=== PATIENT | male | born 1935 | race Caucasian/White ===

== ENCOUNTER 2017-03-23 11:11 | Emergency (ER) | payer MEDICARE, BC ==
[2017-03-23 11:22] VITALS: BP 118/65
[2017-03-23] MEDS ORDERED: Sodium Chloride 0.9% 1,000 ML IV ONE ×2 (11:38→13:35)
[2017-03-23] MEDS ORDERED: Sodium Chloride 0.9% 10 ML Syringe FLUSH PRN (11:39)
--- NOTE | 2017-03-23 11:42 | EDM.PDOC ---
ED HPI GENERAL MEDICAL PROBLEM - General Chief Complaint: Gastrointestinal Problem Stated Complaint: BLOOD IN STOOL Time Seen by Provider: 03/23/17 11:29 Source of Information: Reports: Patient History Limitations: Reports: No Limitations - History of Present Illness INITIAL COMMENTS - FREE TEXT/NARRATIVE: 81-year-old male presents for evaluation and treatment of a black, tarry stool. Reports one black stool prior to arrival in the ER. He has a history of GI bleeds and was hospitalized about one year ago. He's had an upper endoscopy and a colonoscopy about a year and a half ago. He is denying any current pain. No abdominal pain. No nausea, vomiting, hematemesis or syncope. He has been feeling slightly lightheaded this has been going on for the last few weeks but has been worse today. Patient also reports that he has been ill with an upper respiratory infection for several weeks. He states that he was sneezing last week has been coughing. He was seen at the [facility] today. He had a chest x-ray done. He eas prescribed doxycycline, prednisone and tessalon perles. He has not started these medications as he just picked him up from the pharmacy prior to coming to the ER. Patient has a history of a gastric ulcer. No current hematemesis. Patient has a history of diverticulitis and GI bleeds. Patient is currently on aspirin 81mg and Plavix for cardiac stent placed recently. Stent placed January 12, 2017 in [place]. - Related Data Allergies Allergy/AdvReac Type Severity Reaction Status Date / Time allantoin Allergy Edema Verified 03/23/17 11:22 bacitracin [From Polysporin] Allergy Swelling Verified 03/23/17 11:22 bacitracin zinc Allergy Swelling Verified 03/23/17 11:22 [From Neosporin ([id number])] Gramicidins Allergy Edema Verified 03/23/17 11:22 neomycin sulfate Allergy Swelling Verified 03/23/17 11:22 [From Neosporin ([id number])] polymyxin B Allergy Swelling Verified 03/23/17 11:22 [From Neosporin ([id number])] polymyxin B sulfate Allergy Swelling Verified 03/23/17 11:22 [From Polysporin] pramoxine Allergy Edema Verified 03/23/17 11:22 silicone Allergy Edema Verified 03/23/17 11:22 Home Meds: Home Meds Allopurinol [Zyloprim] 100 tab PO DAILY 07/08/15 [History] Aspirin [Adult Low Dose Aspirin EC] 81 tab PO DAILY 07/08/15 [History] Furosemide [Lasix] 40 mg PO DAILY 07/08/15 [History] Metoprolol Tartrate [Lopressor] 50 tab PO BID 07/08/15 [History] Nitroglycerin [Nitrostat] 0.4 mg SL ASDIRECTED PRN 07/08/15 [History] Spironolactone [Aldactone] 12.5 mg PO DAILY 07/08/15 [History] Tamsulosin [Flomax] 0.4 mg PO DAILY 07/08/15 [History] Isosorbide Mononitrate [Isosorbide Mononitrate ER] 60 mg PO BID 03/04/16 [ History] Losartan Potassium 50 mg PO DAILY 03/04/16 [History] Clopidogrel [Plavix] 75 mg PO DAILY 01/20/17 [History] Rosuvastatin [Crestor] 20 mg PO DAILY 03/23/17 [History] Past Medical History HEENT History: Reports: Cataract, Impaired Vision Other HEENT History: wears glasses. Cardiovascular History: Reports: Bypass, CAD, Cardiomyopathy, High Cholesterol, Hypertension Other Cardiovascular History: Chest Pain with exercise - EF 30% [see echo] Gastrointestinal History: Reports: Diverticulosis, GI Bleed Genitourinary History: Reports: Renal Calculus Other Genitourinary History: Currently treating new renal problems [CRI?] Musculoskeletal History: Reports: Gout - Infectious Disease History Infectious Disease History: Reports: Measles - Past Surgical History HEENT Surgical History: Reports: Cataract Surgery Cardiovascular Surgical History: Reports: AICD, Coronary Artery Bypass Male Surgical History: Reports: Other (See Below) Musculoskeletal Surgical History: Reports: None Dermatological Surgical History: Reports: None Social & Family History - Family History HEENT: Reports: Cataract Cardiac: Reports: Bypass, Heart Failure, Heart Valve Replacement, High Cholesterol, Hypertension Other Cardiac Family History: mom and brother, sisters "whole family had heart issues" OBGYN: Reports: Neurological: Reports: CVA Other Neurological Family History: mother Oncologic: Reports: Breast, Lung Other Oncologic Family History: sisters, father lung - Tobacco Use Smoking Status *Q: Never Smoker Years of Tobacco use: 30 Packs/Tins Daily: 1 Used Tobacco, but Quit: Yes Month Tobacco Last Used: 10/24/1969 Second Hand Smoke Exposure: No - Caffeine Use Caffeine Use: Reports: Coffee Other Caffeine Use: decaf 1 cup in the am. - Alcohol Use Days Per Week of Alcohol Use: 0 - Recreational Drug Use Recreational Drug Use: No Drug Use in Last 12 Months: No - Living Situation & Occupation Living situation: Reports: , with Spouse Occupation: Retired ED ROS GENERAL - Review of Systems Review Of Systems: See Below Constitutional: Reports: Decreased Appetite. Denies: Fever Respiratory: Reports: Cough Cardiovascular: Reports: Lightheadedness GI/Abdominal: Reports: Melena. Denies: Abdominal Pain, Diarrhea, Nausea, Vomiting Neurological: Denies: Syncope ED EXAM, GI/ABD - Physical Exam Exam: See Below Exam Limited By: No Limitations General Appearance: Alert, WD/WN, No Apparent Distress, Obese Respiratory/Chest: No Respiratory Distress, Lungs Clear, Normal Breath Sounds Cardiovascular: Normal Peripheral Pulses, Regular Rate, Rhythm, Systolic Murmur (grade 2 ) GI/Abdominal: Normal Bowel Sounds, Soft, Non-Tender Rectal (Males) Exam: Normal Exam, Normal Rectal Tone, Black Stool, Heme + Stool , Hemorrhoids (external hemorrhoid skin tag) Neurological: Alert, Oriented, Normal Cognition Psychiatric: Normal Affect, Normal Mood Skin Exam: Warm, Dry, Normal Color Course - Vital Signs Last Recorded V/S: Last Vital Signs Temp 37.1 C 03/23/17 11:18 Pulse 74 03/23/17 11:18 Resp 18 03/23/17 11:18 BP 118/65 03/23/17 11:18 Pulse Ox 98 03/23/17 11:18 Orthostatic Blood Pressure [ 120/62 Standing] Orthostatic Blood Pressure [ 120/56 Sitting] Orthostatic Blood Pressure [ 90/50 Supine] - Orders/Labs/Meds Orders: Active Orders 24 hr Category Date Time Status Cardiac Monitoring [RC] . DIRECTED Care 03/23/17 11:39 Active Hemoccult [Fecal Occult Blood Collection] [RC] Care 03/23/17 12:11 Active ASDIRECTED Orthostatic Vital Signs [RC] ASDIRECTED Care 03/23/17 11:39 Active Peripheral IV Care [RC] . DIRECTED Care 03/23/17 11:39 Active UA W/MICROSCOPIC [URIN] Stat Lab 03/23/17 11:39 Uncollected Sodium Chloride 0.9% [Normal Saline] 1,000 ml Med 03/23/17 11:38 Active IV ONETIME Sodium Chloride 0.9% [Saline Flush] Med 03/23/17 11:39 Active 10 ml FLUSH ASDIRECTED PRN Peripheral IV Insertion Adult [OM.PC] Routine Oth 03/23/17 11:37 Ordered Medication Orders Sodium Chloride (Normal Saline) 1,000 mls @ 100 mls/hr IV ONETIME ONE Stop: 03/23/17 21:37 Last Admin: 03/23/17 11:59 Dose: 100 mls/hr Sodium Chloride (Normal Saline) 1,000 mls @ 999 mls/hr IV ONETIME ONE Stop: 03/23/17 14:35 Pantoprazole Sodium 80 mg/ (Sodium Chloride) 100 mls @ 8 mls/hr IV NOW STA Stop: 03/24/17 02:19 Albumin Human (Flexbumin 25%) 25 gm in 100 mls @ 100 mls/hr IV ONETIME ONE Stop: 03/23/17 14:52 Sodium Chloride (Saline Flush) 10 ml FLUSH ASDIRECTED PRN PRN Reason: Keep Vein Open Last Admin: 03/23/17 12:00 Dose: 10 ml Labs: Laboratory Tests 03/23/17 03/23/17 03/23/17 Range/Units 11:50 11:50 11:50 WBC 11.59 H (4.23-9.07) K/mm3 RBC 3.13 L (4.63-6.08) M/mm3 Hgb 9.9 L (13.7-17.5) gm/L Hct 30.6 L (40.1-51.0) % MCV 97.8 H (79.0-92.2) fl MCH 31.6 (25.7-32.2) pg MCHC 32.4 (32.2-35.5) g/dl RDW Std Deviation 49.3 H (35.1-43.9) fL Plt Count 138 L (163-337) K/mm3 MPV 11.2 (9.4-12.3) fl Neutrophils % (Manual) 74 H (40-60) % Band Neutrophils % 1 (0-10) % Lymphocytes % (Manual) 22 (20-40) % Atypical Lymphs % 0 % Monocytes % (Manual) 2 (2-10) % Eosinophils % (Manual) 0 L (0.8-7.0) % Basophils % (Manual) 1 (0.2-1.2) Platelet Estimate Adequate Hypochromasia 1+ slight Anisocytosis 1+ slight RBC Morph Comment Not Reportable Sodium 142 (136-145) mEq/L Potassium 4.6 (3.5-5.1) mEq/L Chloride 109 H (98-107) mEq/L Carbon Dioxide 21 (21-32) mEq/L Anion Gap 16.6 H (5-15) BUN 103 H (7-18) mg/dL Creatinine 2.0 H (0.7-1.3) mg/dL Est Cr Clr Drug Dosing 31.79 mL/min Estimated GFR (MDRD) 32 (>60) mL/min BUN/Creatinine Ratio 51.5 H (14-18) Glucose 142 H (83-115) mg/dL Calcium 8.5 (8.5-10.1) mg/dL Total Bilirubin 0.5 (0.2-1.0) mg/dL AST 16 (15-37) U/L ALT 21 (16-63) U/L Alkaline Phosphatase 74 (46-116) U/L B-Natriuretic Peptide 181 H (0-100) pg/mL Total Protein 7.3 (6.4-8.2) g/dl Albumin 3.2 L (3.4-5.0) g/dl Globulin 4.1 gm/dL Albumin/Globulin Ratio 0.8 L (1-2) Meds: Medications Generic Name Dose Route Start Last Admin Trade Name Paul PRN Reason Stop Dose Admin Sodium Chloride 1,000 mls @ 100 mls/hr 03/23/17 11:38 03/23/17 11:59 Normal Saline IV 03/23/17 21:37 100 mls/hr ONETIME ONE Administration Sodium Chloride 1,000 mls @ 999 mls/hr 03/23/17 13:35 Normal Saline IV 03/23/17 14:35 ONETIME ONE Pantoprazole Sodium 80 mg/ 100 mls @ 8 mls/hr 03/23/17 13:50 Sodium Chloride IV 03/24/17 02:19 NOW STA Albumin Human 25 gm in 100 mls @ 100 mls/hr 03/23/17 13:53 Flexbumin 25% IV 03/23/17 14:52 ONETIME ONE Sodium Chloride 10 ml 03/23/17 11:39 03/23/17 12:00 Saline Flush FLUSH 10 ml ASDIRECTED PRN Administration Keep Vein Open Discontinued Medications Generic Name Dose Route Start Last Admin Trade Name Freq PRN Reason Stop Dose Admin Albumin Human 25 gm in 100 mls @ 100 mls/hr 03/23/17 13:58 Flexbumin 25% IV 03/23/17 14:57 ONETIME ONE Pantoprazole Sodium 40 mg 03/23/17 12:03 03/23/17 12:08 Protonix Iv IVPUSH 03/23/17 12:04 40 mg ONETIME ONE Administration Pantoprazole Sodium 40 mg 03/23/17 13:49 03/23/17 14:04 Protonix Iv IVPUSH 03/23/17 13:50 40 mg ONETIME ONE Administration - Re-Assessments/Exams Free Text/Narrative Re-Assessment/Exam: 03/23/17 12:58 Labs returned. WBC is 11.59, hgb is 9.9 and plts are 138 sodium is 142, potassium is 4.6 and chloride is 109. Anion gap is 16.6. Glucose is 142. BUN is elevated at 103. Creatinine is 2.0 BNP is elevated at 181 03/23/17 14:[address] Bergeron, hospitalist machine carton marker, regarding this patient. She agreed to the admission. Asked I consult Dr. Johnston as she has been involved in his care in the past. I then consulted Dr. Johnston. She recommended that given he was recently started on Plavix for his stent placement he should go to [place] where they will have platelets available and interventional cardiology available if needed. I spoke with the patient about this. They elect to go to [facility] in [place]. I spoke with SIMEON Dempsey who recommended a additional 40 mg IV protonix bolus and a drip at 8 mg an hour. i also spoke with Dr. Lanza, hospitalist who recommended albumin 50 g due to systolic blood pressure in the 90s. Also recommended fluid boluses. We will transfer by ground ambulance to [facility] and [place]. Departure - Departure Time of Disposition: 14:11 Disposition: DC/Tfer to Acute Hospital 02 Condition: serious Clinical Impression: Melena, GI bleed, Hypotension - Discharge Information - My Orders Last 24 Hours: My Active Orders 03/23/17 11:37 Peripheral IV Insertion Adult [OM.PC] Routine 03/23/17 11:38 Sodium Chloride 0.9% [Normal Saline] 1,000 ml IV ONETIME 03/23/17 11:39 Cardiac Monitoring [RC] . DIRECTED Orthostatic Vital Signs [RC] ASDIRECTED Peripheral IV Care [RC] . DIRECTED UA W/MICROSCOPIC [URIN] Stat Sodium Chloride 0.9% [Saline Flush] 10 ml FLUSH ASDIRECTED PRN 03/23/17 12:11 Hemoccult [Fecal Occult Blood Collection] [RC] ASDIRECTED - Assessment/Plan Last 24 Hours: My Active Orders 03/23/17 11:37 Peripheral IV Insertion Adult [OM.PC] Routine 03/23/17 11:38 Sodium Chloride 0.9% [Normal Saline] 1,000 ml IV ONETIME 03/23/17 11:39 Cardiac Monitoring [RC] . DIRECTED Orthostatic Vital Signs [RC] ASDIRECTED Peripheral IV Care [RC] . DIRECTED UA W/MICROSCOPIC [URIN] Stat Sodium Chloride 0.9% [Saline Flush] 10 ml FLUSH ASDIRECTED PRN 03/23/17 12:11 Hemoccult [Fecal Occult Blood Collection] [RC] ASDIRECTED
[2017-03-23] MEDS ORDERED: Pantoprazole 40 MG Vial IVPUSH ONE ×2 (12:03→13:49)
[2017-03-23] MEDS ORDERED: Pantoprazole 80 MG in Sodium Chloride 0.9% 100 ML IV STA (13:50)
== END 2017-03-23 14:30 ==
LOC: JD.ED 11:11 → JD.MS 13:13 → UNDOADMOB 13:13 → UNDODISOB 13:13 → JD.ED 14:30
DX: K92.1 Melena (principal); I95.9 Hypotension, unspecified; I11.0 Hypertensive heart disease with heart failure; I25.10 Atherosclerotic heart disease of native coronary artery without angina pectoris; E78.00 Pure hypercholesterolemia, unspecified; Z98.49 Cataract extraction status, unspecified eye; Z98.890 Other specified postprocedural states; Z95.1 Presence of aortocoronary bypass graft; Z95.810 Presence of automatic (implantable) cardiac defibrillator; Z79.82 Long term (current) use of aspirin; Z79.02 Long term (current) use of antithrombotics/antiplatelets; Z79.899 Other long term (current) drug therapy; Z88.1 Allergy status to other antibiotic agents; Z88.8 Allergy status to other drugs, medicaments and biological substances
CPT/HCPCS: 36415; 80053; 83880; 85025; 96361; 96374; 96376; 99285; C9113; J7030; J7040; J7050; P9047; 99284

== ENCOUNTER 2019-04-01 14:06 | Emergency (ER) | payer MEDICARE, BC ==
[2019-04-01 14:15] VITALS: BP 125/69
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
[2019-04-01] MEDS ORDERED: Ondansetron 4 MG/2 ML SDV IVPUSH ONE (14:22)
[2019-04-01] MEDS ORDERED: HYDROmorphone 0.5 MG/0.5 ML Syringe IVPUSH ONE (14:22)
[2019-04-01] MEDS ORDERED: Sodium Chloride 0.9% 1,000 ML IV SCH (14:30)
--- NOTE | 2019-04-01 15:26 | CT ---
CT maxillofacial: Multiple axial sections were obtained from above the frontal sinuses inferiorly through the mandible. Reconstructed sagittal and coronal images were reviewed. Findings: Prominent soft tissue swelling is seen within the left periorbital region. Right and left globes are symmetric. Extraocular muscles are symmetric. No retrobulbar are abnormality is seen. No orbital fracture is seen. Zygomatic arches are intact. Mandible shows no fracture. Mild mucosal thickening incidentally is noted within the maxillary sinuses. Impression: 1. Prominent soft tissue swelling within the left periorbital region. 2. Mild mucosal thickening within both maxillary sinuses. 3. No facial bone fracture is seen. Diagnostic code #2
--- NOTE | 2019-04-01 15:28 | CT ---
Head CT Technique: Multiple axial sections through the brain were obtained. Intravenous contrast was not utilized. Comparison: Prior head CT study of 10/15/18. Findings: Soft tissue swelling and hematoma is noted within the left periorbital region. Ventricles along with basal cisterns and sulci over the convexities are mildly prominent. No abnormal parenchymal densities are seen. No evidence of intracranial hemorrhage. No midline shift or mass effect is seen. Bone window settings were reviewed which shows no acute calvarial abnormality. Mild mucosal thickening is noted within the maxillary sinuses. No fluid is seen within the sinuses. Impression: 1. Soft tissue swelling and hematoma within the left periorbital region. 2. Mild chronic mucosal thickening within the maxillary sinuses. 3. Mild generalized atrophy. 4. No acute intracranial abnormality is identified. Diagnostic code #3
--- NOTE | 2019-04-01 15:28 | CT ---
CT cervical spine Technique: Multiple axial sections through the cervical spine were obtained to the top of T2. Reconstructed sagittal and coronal images were reviewed. Comparison: Prior CT cervical spine study of 10/15/18. Findings: Mild disc space narrowing is noted at C4-5. Severe disc space narrowing is noted at C5-6. Osteophytes are noted anteriorly at C4-5 through T1-2. Some of these osteophytes are bridging. Mild degenerative change is scattered throughout the apophyseal joints which is worse on the left side. Posterior spurring is noted which is most severe at C5-6. Diffuse degenerative change is noted within multiple uncovertebral joints. Mild right sided neural foraminal stenosis is noted at C5-6. Posterior spur causes mild central canal stenosis at C5-6. Other neural foramina are patent. No other levels of central canal stenosis is seen. No fracture is identified. No abnormal subluxation is seen. Impression: 1. Degenerative change as described above. No significant change from prior study is seen. 2. Nothing acute is appreciated. Diagnostic code #2
[2019-04-01] MEDS ORDERED: ceFAZolin 2 GM in Premix Bag 1 BAG IV ONE (17:37)
--- NOTE | 2019-04-01 19:34 | CR ---
Right wrist: Four views of the right wrist were obtained. Comparison: No prior study. Vascular calcification is seen. Minimal degenerative change is noted within the CMC joint of the thumb. Mild joint space narrowing is noted off the navicular bone. No acute fracture, dislocation or other bony abnormality is seen. Impression: 1. Findings as noted above. Nothing acute is appreciated on right wrist exam. Diagnostic code #2
== END 2019-04-01 19:13 | disposition home or self-care (01) ==
LOC: JD.ED 14:06
DX: S51.811A Laceration without foreign body of right forearm, initial encounter (principal); S01.21XA Laceration without foreign body of nose, initial encounter; S01.112A Laceration without foreign body of left eyelid and periocular area, initial encounter; S61.511A Laceration without foreign body of right wrist, initial encounter; S13.9XXA Sprain of joints and ligaments of unspecified parts of neck, initial encounter; S05.12XA Contusion of eyeball and orbital tissues, left eye, initial encounter; K42.9 Umbilical hernia without obstruction or gangrene; I13.0 Hypertensive heart and chronic kidney disease with heart failure and stage 1 through stage 4 chronic kidney disease, or unspecified chronic kidney disease; I50.9 Heart failure, unspecified; N18.9 Chronic kidney disease, unspecified; I25.10 Atherosclerotic heart disease of native coronary artery without angina pectoris; Z79.899 Other long term (current) drug therapy; I25.2 Old myocardial infarction; Z95.5 Presence of coronary angioplasty implant and graft; M10.9 Gout, unspecified; Z98.49 Cataract extraction status, unspecified eye; Z95.1 Presence of aortocoronary bypass graft; Z88.8 Allergy status to other drugs, medicaments and biological substances; Z79.82 Long term (current) use of aspirin; W22.01XA Walked into wall, initial encounter
CPT/HCPCS: 12011; 70450; 70486; 72125; 73110; 96361; 96365; 96375; 99284; J0690; J1170; J2405; J7040

== ENCOUNTER 2019-07-01 11:49 | Emergency (ER) | payer MEDICARE, BC ==
[2019-07-01 11:58] VITALS: BP 131/70; PULSE 74
--- NOTE | 2019-07-01 12:34 | EDM.PDOC ---
ED HPI GENERAL MEDICAL PROBLEM - General Chief Complaint: Back Pain or Injury Stated Complaint: BACK PAIN Time Seen by Provider: 07/01/19 12:28 Source of Information: Reports: Patient History Limitations: Reports: No Limitations - History of Present Illness INITIAL COMMENTS - FREE TEXT/NARRATIVE: 83-year-old male presents for evaluation and treatment of left-sided low back pain that radiates up his back. Reports sudden onset around 0930 this morning. He states it lasted 2 or 3 hours and it has now subsided upon his presentation to the ER. Reports symptoms of dysuria. He does self catheter. He was nauseous and vomited earlier. Tried a Rolaids without any relief. No cough or syncope. Last bowel movement was this morning. Do not appreciate any blood in stool. Primary care provider is Dr. Cummings, has an appointment with him tomorrow. Has a remote history of kidney stones. Lower Back Pain Score (Numeric/FACES): 9 - Related Data Allergies Allergy/AdvReac Type Severity Reaction Status Date / Time bacitracin [From Polysporin] Allergy Swelling Verified 07/01/19 11:54 bacitracin zinc Allergy Swelling Verified 07/01/19 11:54 [From Neosporin ([id number])] neomycin sulfate Allergy Swelling Verified 07/01/19 11:54 [From Neosporin ([id number])] polymyxin B Allergy Swelling Verified 07/01/19 11:54 [From Neosporin ([id number])] polymyxin B sulfate Allergy Swelling Verified 07/01/19 11:54 [From Polysporin] pramoxine Allergy Edema Verified 07/01/19 11:54 Home Meds: Home Meds Allopurinol [Zyloprim] 1 tab PO BEDTIME 10/15/18 [History] Aspirin [Adult Aspirin] 1 tab PO DAILY 10/15/18 [History] Ergocalciferol (Vitamin D2) [Vitamin D2] 1,000 units PO DAILY 10/15/18 [History] Finasteride 1 tab PO BEDTIME 10/15/18 [History] Folic Acid 800 mcg PO DAILY 10/15/18 [History] Furosemide 1 tab PO DAILY 10/15/18 [History] Losartan [Cozaar] 1 tab PO DAILY 10/15/18 [History] Metoprolol Tartrate 1 tab PO BID 10/15/18 [History] Pantoprazole [ProTONIX] 1 tab PO DAILY 10/15/18 [History] Rosuvastatin Calcium 1 tab PO BEDTIME 10/15/18 [History] Spironolactone [Aldactone] 12.5 mg PO DAILY 10/15/18 [History] Clopidogrel [Plavix] 75 mg PO DAILY 02/20/19 [History] Nitroglycerin [Nitrostat] 0.4 mg SL ASDIRECTED PRN 02/20/19 [History] Cephalexin [Keflex] 500 mg PO BID #10 capsule 07/01/19 [Rx] Past Medical History HEENT History: Reports: Cataract, Impaired Vision Other HEENT History: wears glasses. Cardiovascular History: Reports: Angina, Bypass, CAD, Cardiomyopathy, High Cholesterol, Hypertension, NM, Stents Other Cardiovascular History: Chest Pain with exercise - EF 30% [see echo] Gastrointestinal History: Reports: Diverticulosis, GI Bleed, PUD Genitourinary History: Reports: BPH, Chronic Renal Insuffiency, Renal Calculus Other Genitourinary History: Currently treating new renal problems [CRI?] self catherize BID Musculoskeletal History: Reports: Gout Other Musculoskeletal History: fx rib (frontal) Neurological History: Reports: None Psychiatric History: Reports: None Endocrine/Metabolic History: Reports: None Hematologic History: Reports: Blood Transfusion(s) Immunologic History: Reports: None Oncologic (Cancer) History: Reports: None Dermatologic History: Reports: None - Infectious Disease History Infectious Disease History: Reports: Chicken Pox, Measles - Past Surgical History HEENT Surgical History: Reports: Cataract Surgery Cardiovascular Surgical History: Reports: AICD, Coronary Artery Bypass GI Surgical History: Reports: Colonoscopy, EGD Musculoskeletal Surgical History: Reports: None Dermatological Surgical History: Reports: None Social & Family History - Family History HEENT: Reports: Cataract Cardiac: Reports: Bypass, Heart Failure, Heart Valve Replacement, High Cholesterol, Hypertension Other Cardiac Family History: mom and brother, sisters "whole family had heart issues" OBGYN: Reports: Neurological: Reports: CVA Other Neurological Family History: mother Oncologic: Reports: Breast, Lung Other Oncologic Family History: sisters, father lung - Tobacco Use Smoking Status *Q: Never Smoker - Caffeine Use Caffeine Use: Reports: Coffee Other Caffeine Use: decaf 1 cup in the am. - Recreational Drug Use Recreational Drug Use: No - Living Situation & Occupation Living situation: Reports: , with Spouse Occupation: Retired ED ROS GENERAL - Review of Systems Review Of Systems: See Below Respiratory: Denies: Cough GI/Abdominal: Reports: Abdominal Pain (LLQ, now resolved), Nausea, Vomiting. Denies: Bloody Stool : Reports: Dysuria, Flank Pain (left, now resolved) Neurological: Denies: Syncope ED EXAM,LOWER BACK PAIN/INJURY - Physical Exam Exam: See Below Exam Limited By: No Limitations General Appearance: Alert, WD/WN, No Apparent Distress, Obese Ears: Normal External Exam Nose: Normal Inspection Throat/Mouth: Normal Inspection, Normal Lips, Normal Voice, No Airway Compromise Neck: Normal Inspection Respiratory/Chest: No Respiratory Distress, Lungs Clear, Normal Breath Sounds Cardiovascular: Normal Peripheral Pulses, Regular Rate, Rhythm, No Murmur GI/Abdominal: Normal Bowel Sounds, Soft, Non-Tender Neurological: Alert, Normal Mood/Affect Psychiatric: Normal Affect, Normal Mood Skin Exam: Warm, Dry, Normal Color Course - Vital Signs Last Recorded V/S: Last Vital Signs Temp 97.3 F 07/01/19 11:56 Pulse 74 07/01/19 11:56 Resp 18 07/01/19 11:56 BP 131/70 07/01/19 11:56 Pulse Ox 99 07/01/19 11:56 - Orders/Labs/Meds Labs: Laboratory Tests 07/01/19 07/01/19 07/01/19 Range/Units 12:05 12:47 12:47 WBC 7.75 (4.23-9.07) K/mm3 RBC 3.53 L (4.63-6.08) M/mm3 Hgb 11.6 L (13.7-17.5) gm/L Hct 36.0 L (40.1-51.0) % MCV 102.0 H (79.0-92.2) fl MCH 32.9 H (25.7-32.2) pg MCHC 32.2 (32.2-35.5) g/dl RDW Std Deviation 52.1 H (35.1-43.9) fL Plt Count 125 L (163-337) K/mm3 MPV 10.8 (9.4-12.3) fl Neut % (Auto) 85.0 H (34.0-67.9) % Lymph % (Auto) 9.4 L (21.8-53.1) % [place] % (Auto) 4.9 L (5.3-12.2) % Eos % (Auto) 0.5 L (0.8-7.0) Baso % (Auto) 0.1 (0.1-1.2) % Neut # (Auto) 6.58 H (1.78-5.38) K/mm3 Lymph # (Auto) 0.73 L (1.32-3.57) K/mm3 [place] # (Auto) 0.38 (0.30-0.82) K/mm3 Eos # (Auto) 0.04 (0.04-0.54) K/mm3 Baso # (Auto) 0.01 (0.01-0.08) K/mm3 Manual Slide Review Abnormal smear Sodium 141 (136-145) mEq/L Potassium 5.3 H (3.5-5.1) mEq/L Chloride 106 (98-107) mEq/L Carbon Dioxide 23 (21-32) mEq/L Anion Gap 17.3 H (5-15) BUN 61 H (7-18) mg/dL Creatinine 3.1 H (0.7-1.3) mg/dL Est Cr Clr Drug Dosing 19.82 mL/min Estimated GFR (MDRD) 19 (>60) mL/min BUN/Creatinine Ratio 19.7 H (14-18) Glucose 194 H (83-115) mg/dL Calcium 8.9 (8.5-10.1) mg/dL Total Bilirubin 0.6 (0.2-1.0) mg/dL AST 21 (15-37) U/L ALT 17 (16-63) U/L Alkaline Phosphatase 75 (46-116) U/L Total Protein 7.2 (6.4-8.2) g/dl Albumin 3.6 (3.4-5.0) g/dl Globulin 3.6 gm/dL Albumin/Globulin Ratio 1.0 (1-2) Urine Color Dark yellow (Yellow) Urine Appearance Slt cloudy H (Clear) Urine pH 5.5 (5.0-8.0) Ur Specific [place] 1.020 (1.005-1.030) Urine Protein 2+ H (Negative) Urine Glucose (UA) Negative (Negative) Urine Ketones Negative (Negative) Urine Occult Blood 3+ H (Negative) Urine Nitrite Positive H (Negative) Urine Bilirubin Negative (Negative) Urine Urobilinogen 1.0 (0.2-1.0) Ur Leukocyte Esterase 3+ H (Negative) Urine RBC 40-50 H (0-5) /hpf Urine WBC 30-40 H (0-5) /hpf Ur Squamous Epith Cells 5-10 H (0-5) /hpf Urine Bacteria Few (FEW) /hpf Urine Mucus Many H (FEW) /hpf Meds: Medications Discontinued Medications Generic Name Dose Route Start Last Admin Trade Name Paul PRN Reason Stop Dose Admin Cephalexin 500 mg 07/01/19 14:20 07/01/19 14:38 Keflex PO 07/01/19 14:21 500 mg ONETIME ONE Administration - Re-Assessments/Exams Free Text/Narrative Re-Assessment/Exam: 07/01/19 14:22 Reviewed the labs with the patient. Urine sent for culture. Will treat for UTI. Possible the patient passed a stone. He has been pain free since entering the ER. Discussed imaging, however, this will likely not change anything. Patient has an appointment with his PCP tomorrow. Encouraged to keep this as planned. Discharge instructions as documented. Departure - Departure Time of Disposition: 14:22 Disposition: Home, Self-Care 01 Condition: Good Clinical Impression: UTI (urinary tract infection) - Discharge Information *PRESCRIPTION DRUG MONITORING PROGRAM REVIEWED*: No *COPY OF PRESCRIPTION DRUG MONITORING REPORT IN PATIENT DEXTER: No Prescriptions: Cephalexin [Keflex] 500 mg PO BID #10 capsule Instructions: Urinary Tract Infection, Adult Referrals: Damien Sanders MD [Primary Care Provider] - Forms: ED Department Discharge Additional Instructions: cephalexin 1 cap PO bid x 5 days. Follow-up with PCP tomorrow morning as planned. Make sure you are drinking plenty of fluids. Please return to the ER should your symptoms change or worsen.
[2019-07-01] MEDS ORDERED: Cephalexin 500 MG Cap PO ONE (14:20)
== END 2019-07-01 14:39 | disposition home or self-care (01) ==
LOC: JD.ED 11:49
DX: N39.0 Urinary tract infection, site not specified (principal); I12.9 Hypertensive chronic kidney disease with stage 1 through stage 4 chronic kidney disease, or unspecified chronic kidney disease; N18.9 Chronic kidney disease, unspecified; I25.2 Old myocardial infarction; Z88.1 Allergy status to other antibiotic agents; Z98.49 Cataract extraction status, unspecified eye; Z95.1 Presence of aortocoronary bypass graft; Z79.82 Long term (current) use of aspirin; Z79.899 Other long term (current) drug therapy
CPT/HCPCS: 36415; 80053; 81001; 85025; 87086; 87088; 87186; 99283; A9270

== ENCOUNTER 2019-12-21 11:39 | Emergency (ER) | payer MEDICARE, BC ==
[2019-12-21 12:03] VITALS: BP 111/74
[2019-12-21] MEDS ORDERED: Oxymetazoline 0.05% Nasal Spray 30 ML Bottle NAS ONE (12:09)
--- NOTE | 2019-12-21 12:14 | EDM.PDOC ---
ED HPI GENERAL MEDICAL PROBLEM - General Chief Complaint: ENT Problem Stated Complaint: NOSE BLEED Time Seen by Provider: 12/21/19 12:09 Source of Information: Reports: Patient, Family History Limitations: Reports: No Limitations - History of Present Illness INITIAL COMMENTS - FREE TEXT/NARRATIVE: 84-year-old male presents to the ED due to aggressive right epistaxis. It started spontaneously approximately 1045 hrs. this morning. No nasal trauma no recent colds. He did have a nosebleed on the same side about a week ago which they were able to bring under control. He is on Plavix and aspirin daily. Has had issues with nosebleeds in the past. Recent nasal surgery. No recent upper respiratory tract infections. Onset: Today Onset Date: 12/21/19 Onset Time: 10:45 Duration: Minutes: Location: Reports: Head Quality: Reports: Other (Rest of right-sided nosebleed running down the back of his throat.) Severity: Moderate Improves with: Reports: None Worsens with: Reports: None Context: Reports: Other (Spontaneous occurrence.). Denies: Activity, Exercise, Lifting, Sick Contact, Trauma Associated Symptoms: Reports: No Other Symptoms Treatments [employer]: Reports: Other (see below) (Only his usual medications.) Other Treatments [employer]: pressure - Related Data Allergies Allergy/AdvReac Type Severity Reaction Status Date / Time bacitracin [From Polysporin] Allergy Swelling Verified 07/01/19 11:54 bacitracin zinc Allergy Swelling Verified 07/01/19 11:54 [From Neosporin ([id number])] neomycin sulfate Allergy Swelling Verified 07/01/19 11:54 [From Neosporin ([id number])] polymyxin B Allergy Swelling Verified 07/01/19 11:54 [From Neosporin ([id number])] polymyxin B sulfate Allergy Swelling Verified 07/01/19 11:54 [From Polysporin] pramoxine Allergy Edema Verified 07/01/19 11:54 Home Meds: Home Meds Aspirin [Adult Aspirin] 1 tab PO DAILY 10/15/18 [History] Ergocalciferol (Vitamin D2) [Vitamin D2] 1,000 units PO DAILY 10/15/18 [History] Finasteride 1 tab PO BEDTIME 10/15/18 [History] Folic Acid 800 mcg PO DAILY 10/15/18 [History] Furosemide 1 tab PO DAILY 10/15/18 [History] Losartan [Cozaar] 1 tab PO DAILY 10/15/18 [History] Metoprolol Tartrate 1 tab PO BID 10/15/18 [History] Pantoprazole [ProTONIX] 1 tab PO DAILY 10/15/18 [History] Rosuvastatin Calcium 1 tab PO BEDTIME 10/15/18 [History] Spironolactone [Aldactone] 12.5 mg PO DAILY 10/15/18 [History] allopurinoL [Zyloprim] 1 tab PO BEDTIME 10/15/18 [History] Clopidogrel [Plavix] 75 mg PO DAILY 02/20/19 [History] Nitroglycerin [Nitrostat] 0.4 mg SL ASDIRECTED PRN 02/20/19 [History] Cephalexin [Keflex] 500 mg PO BID #10 capsule 07/01/19 [Rx] Mupirocin Oint [Bactroban Oint] 22 gm .XX DAILY #1 tube 12/21/19 [Rx] Past Medical History HEENT History: Reports: Cataract, Impaired Vision Other HEENT History: wears glasses. Cardiovascular History: Reports: Angina, Bypass, CAD, Cardiomyopathy, High Cholesterol, Hypertension, [place], Stents Other Cardiovascular History: Chest Pain with exercise - EF 30% [see echo] Gastrointestinal History: Reports: Diverticulosis, GI Bleed, PUD Genitourinary History: Reports: BPH, Chronic Renal Insuffiency, Renal Calculus Other Genitourinary History: Currently treating new renal problems [CRI?] self catherize BID Musculoskeletal History: Reports: Gout Other Musculoskeletal History: fx rib (frontal) Neurological History: Reports: None Psychiatric History: Reports: None Endocrine/Metabolic History: Reports: None Hematologic History: Reports: Blood Transfusion(s) Immunologic History: Reports: None Oncologic (Cancer) History: Reports: None Dermatologic History: Reports: None - Infectious Disease History Infectious Disease History: Reports: Chicken Pox, Measles - Past Surgical History HEENT Surgical History: Reports: Cataract Surgery Cardiovascular Surgical History: Reports: AICD, Coronary Artery Bypass GI Surgical History: Reports: Colonoscopy, EGD Musculoskeletal Surgical History: Reports: None Dermatological Surgical History: Reports: None Social & Family History - Family History HEENT: Reports: Cataract Cardiac: Reports: Bypass, Heart Failure, Heart Valve Replacement, High Cholesterol, Hypertension Other Cardiac Family History: mom and brother, sisters "whole family had heart issues" OBGYN: Reports: Neurological: Reports: CVA Other Neurological Family History: mother Oncologic: Reports: Breast, Lung Other Oncologic Family History: sisters, father lung - Tobacco Use Smoking Status *Q: Never Smoker - Caffeine Use Caffeine Use: Reports: Coffee, Soda, Tea Other Caffeine Use: decaf 1 cup in the am. - Recreational Drug Use Recreational Drug Use: No - Living Situation & Occupation Living situation: Reports: , with Spouse Occupation: Retired ED ROS ENT - Review of Systems Review Of Systems: See Below Constitutional: Reports: Fatigue. Denies: Fever, Chills, Malaise HEENT: Reports: Glasses, Nosebleed Respiratory: Reports: No Symptoms (Darted in this morning and will not quit for the last hour.) Cardiovascular: Reports: Blood Pressure Problem, Dyspnea on Exertion, Edema Endocrine: Reports: Fatigue GI/Abdominal: Reports: Constipation : Reports: Frequency, Other (Teary at x2 or 3. Known BPH.) Musculoskeletal: Reports: Back Pain ( and neck.), Joint Pain (Arthritic changes knees hips shoulders) Skin: Reports: Bruising Neurological: Reports: No Symptoms Psychiatric: Reports: No Symptoms ED EXAM, ENT - Physical Exam Exam: See Below Exam Limited By: No Limitations General Appearance: Alert, WD/WN, Moderate Distress, Other (Temperature is 36.3 pulse is 71. Respiratory is 20 BP 111/74 pulse ox is 98% on room air.) Eye Exam: Bilateral Eye: Normal Inspection (No blood coming up the tear ducts.) Nose: Other (Rest of bleeding is coming from the anterior nasal septum which I cannot visualize exactly where it is coming from at this point time on the right side the left is clear.) Mouth/Throat: Other Head: Atraumatic (His blood draining down the right side of the posterior nasopharynx and oropharynx.), Normocephalic, Other Neck: Normal Inspection (Forward signs of any facial or head trauma.), Limited Range of Motion, Tender Lateral. No: Full Range of Motion, Carotid Bruit, Lymphadenopathy (L) Respiratory/Chest: No Respiratory Distress, Lungs Clear, Normal Breath Sounds, No Accessory Muscle Use, Decreased Breath Sounds (Sounds are slightly diminished to the lower 20% lung peter bilaterally.) Cardiovascular: No Edema, No Gallop, No Rub Neurological: Alert, Oriented, CN II-XII Intact, Normal Cognition Psychiatric: Anxious Skin: Warm, Dry, Intact, Normal Color, No Rash ED ENT PROCEDURES - Epistaxis Procedure Indication: Epistaxis, Uncontrolled Recent anticoagulants/antiplatlets: Yes Uncontrolled HTN: No Recent septal/nasal surgery: No Site of bleeding: Right Nare Clearing of clots: Patient Blew Nose Topical Meds: Topical Cocaine, Other ( Afrin nasal spray) Ice pack to area: No Chemical cautery: Silver Nitrate Topical Post cautery: Antibiotic Ointment Complications: No Course - Vital Signs Last Recorded V/S: Last Vital Signs Temp 36.3 C 12/21/19 12:02 Pulse 55 L 12/21/19 14:20 Resp 20 12/21/19 14:20 BP 111/74 12/21/19 12:02 Pulse Ox 97 12/21/19 14:20 - Orders/Labs/Meds Orders: Active Orders 24 hr Category Date Time Status RT Aerosol Therapy [RC] ASDIRECTED Care 12/21/19 12:30 Active Labs: Laboratory Tests 12/21/19 12/21/19 12/21/19 Range/Units 14:04 14:04 14:04 WBC 8.04 (4.23-9.07) K/mm3 RBC 3.48 L (4.63-6.08) M/mm3 Hgb 11.2 L (13.7-17.5) gm/dl Hct 36.6 L (40.1-51.0) % MCV 105.2 H D (79.0-92.2) fl MCH 32.2 (25.7-32.2) pg MCHC 30.6 L (32.2-35.5) g/dl RDW Std Deviation 56.1 H (35.1-43.9) fL Plt Count 142 L (163-337) K/mm3 MPV 11.7 (9.4-12.3) fl Neut % (Auto) 72.2 H (34.0-67.9) % Lymph % (Auto) 16.5 L (21.8-53.1) % [place] % (Auto) 9.3 (5.3-12.2) % Eos % (Auto) 1.4 (0.8-7.0) Baso % (Auto) 0.4 (0.1-1.2) % Neut # (Auto) 5.80 H (1.78-5.38) K/mm3 Lymph # (Auto) 1.33 (1.32-3.57) K/mm3 [place] # (Auto) 0.75 (0.30-0.82) K/mm3 Eos # (Auto) 0.11 (0.04-0.54) K/mm3 Baso # (Auto) 0.03 (0.01-0.08) K/mm3 Manual Slide Review Abnormal smear Sodium 141 (136-145) mEq/L Potassium 5.0 (3.5-5.1) mEq/L Chloride 105 (98-107) mEq/L Carbon Dioxide 24 (21-32) mEq/L Anion Gap 17.0 H (5-15) BUN 69 H (7-18) mg/dL Creatinine 3.0 H (0.7-1.3) mg/dL Est Cr Clr Drug Dosing 20.12 mL/min Estimated GFR (MDRD) 20 (>60) mL/min BUN/Creatinine Ratio 23.0 H (14-18) Glucose 106 (83-115) mg/dL Calcium 9.9 (8.5-10.1) mg/dL Magnesium 2.4 (1.8-2.4) mg/dl Total Bilirubin 0.6 (0.2-1.0) mg/dL AST 19 (15-37) U/L ALT 19 (16-63) U/L Alkaline Phosphatase 71 (46-116) U/L Troponin I 0.051 (0.00-0.056) ng/mL C-Reactive Protein 0.2 (<1.0) mg/dL NT-Pro-B Natriuret Pep 6449 H (0-450) pg/mL Total Protein 7.7 (6.4-8.2) g/dl Albumin 3.8 (3.4-5.0) g/dl Globulin 3.9 gm/dL Albumin/Globulin Ratio 1.0 (1-2) Meds: Medications Discontinued Medications Generic Name Dose Route Start Last Admin Trade Name Freq PRN Reason Stop Dose Admin Albuterol/Ipratropium 3 ml 12/21/19 12:30 12/21/19 12:47 Duoneb 3.0-0.5 Mg/3 Ml NEB 12/21/19 12:31 3 ml ONETIME ONE Administration Cocaine HCl 4 ml 12/21/19 12:09 12/21/19 12:15 Cocaine Hcl TOP 12/21/19 12:10 4 ml ONETIME ONE Administration Oxymetazoline HCl 15 ml 12/21/19 12:09 12/21/19 12:15 Nasal Decongestant [place] YASMEEN 12/21/19 12:10 15 ml ONETIME ONE Administration - Radiology Interpretation Free Text/Narrative:: 84-year-old male presents to the ED with an acute right-sided nosebleed that has been bleeding aggressively for the last hour and a quarter. Clinically it is coming from the anterior nasal septum but I cannot identify exact source. He is on Plavix and aspirin daily contributing to the bleeding. No nasal trauma. Plan I am going to pack his nose with half-inch tube gauze soaked in cocaine and Afrin and leave the pack in for 20 minutes to half hour to allow the bleeding to stop and then will have a second look to see if we can find an area to cauterize. - Re-Assessments/Exams Free Text/Narrative Re-Assessment/Exam: 12/21/19 12:32 right naris was packed with a combination of cocaine and Afrin soaked 1/2 inch tube gauze and will remain in place for the next 30 minutes to bring the bleeding under control. He is wheezing quite badly and has had upper spike tract infection with a terrible cough for 2 weeks. He did not have a chest x-ray when he was seen in the clinic. PV has been treated with a Z-Amos. 12/21/19 13:18 I did remove the nasal packing from the right nares and the bleeding had stopped. I could see where the bleeding was coming from the anterior nasal septum. Unfortunately the nose did start to bleed once again and I would did cauterize it 1 more time and then placed a nose clamp. I will review him in 10 minutes time 12/21/19 13:28: 1 area of minor bleeding was appreciated on repeat exam and I cauterized this and it looked good after this. I will review them in the next 10 to 15 minutes. I have ordered routine labs on him including a BNP which is currently not available due to the analyzer being down but it will be done later today I believe that his paroxysmal productive cough worse with lying down is likely due to cardiac asthma. X-ray reveals prominence of the pulmonary arteries and diffuse vascular congestion pattern with no signs of pneumonia. I am going to increase his Lasix to an additional 40 mg this afternoon and then 20 mg in the afternoon with his 40 mg in the morning for the rest the weekend. He has an appointment to see Dr. Sanders first thing Tuesday morning 12/21/19 13:53 No further bleeding appreciated on repeat examination. Lab has not drawn him yet. The plan will be to give him an extra dose of Lasix 40 mg this afternoon. At present the analyzer is down that measures BNP and will be available until later tonight. 12/21/19 15:58 Labs reveal a white count of 8.04 with 72.2% neutrophils. Hemoglobin was 11.2 with hematocrit of 36.6. MCV is elevated at 105.2. Platelet count is low normal at 1 42,000. The slide shows 2+ anisocytosis and 2 + macrocytes and 1+ ovalocytes. Platelets appeared normal and adequate. No banded neutrophils were identified. Sodium is 141 with a potassium of 5.0. Chloride is 105 with a bicarb of 24. Anion gap is slightly elevated at 17.0. BUN is 69 -markedly elevated creatinine is 3.0.e GFR is only 20 i.e. stage IV renal insufficiency. Glucose is 106 with a calcium of 9.9. Magnesium is 2.4 liver function was normal troponin I was less than 0.051. C-reactive protein is 0.2. Total protein is 7.7 with an albumin fraction of 3.8. BNP is not yet available. 12/22/19 07:04 BNP is now back and is markedly elevated at 6449 confirming clinical suspicion of cardiac asthma as cause of his persistent cough and wheezing. I had added a 40 mg Lasix tablet yesterday afternoon and then he is to take 20 mg every afternoon until he sees Dr. Sanders on Tuesday. He may well need 40 mg twice a for a week or so to provide diuresis Departure - Departure Time of Disposition: 13:54 Disposition: Home, Self-Care 01 Condition: Fair Clinical Impression: Epistaxis not due to trauma, Epistaxis Congestive heart failure Qualifiers: Heart failure type: unspecified Heart failure chronicity: acute on chronic Qualified Code(s): I50.9 - Heart failure, unspecified - Discharge Information *PRESCRIPTION DRUG MONITORING PROGRAM REVIEWED*: Not Applicable *COPY OF PRESCRIPTION DRUG MONITORING REPORT IN PATIENT DEXTER: Not Applicable Prescriptions: Mupirocin Oint [Bactroban Oint] 22 gm .XX DAILY #1 tube Instructions: Nosebleed, [id number] Referrals: Damien Sanders MD [Primary Care Provider] - Forms: ED Department Discharge Additional Instructions: Evaluation in the emergency room today in regards to sudden onset of a spontaneous right nosebleed that would not come under control with direct pressure at home. This bleeding is aggravated by being on aspirin and Plavix. Initially the nose was packed with a combination of Afrin and cocaine for 1/2- hour to bring the bleeding under control. It was identified the bleeding was coming from the anterior nasal septum and this area was cauterized on 3 separate occasions to bring the bleeding under control. Suggest Mycifradin ointment every night at bedtime applied with a Q-tip to the anterior nasal septum of both sides of your nose for the next week to try and prevent any further bleeding. Of course if any further bleeding occurs return to the ED. Second problem identified is significant cough with wheezing. I suspect on examination this is actually due to an abundance of fluid in your lungs or mild exacerbation of your heart failure. Chest x-ray did not show any signs of pneumonia. It did show diffuse vascular congestion pattern compatible with extra fluid within the lung veins. You currently are taking Lasix 40 mg in the morning and I would advise taking an extra 40 mg this afternoon when you get home. Then 20 mg in the afternoon until you see Dr. Sanders on Tuesday. Continue the 40 mg dose in the morning as well. Labs have been drawn but the analyzer is down at this time and I am not able to get an answer in regards to the BNP value at this time Sepsis Event Note - Evaluation Sepsis Screening Result: No Definite Risk - Focused Exam Date Exam was Performed: 12/22/19 Time Exam was Performed: 07:02 - My Orders Last 24 Hours: My Active Orders 12/21/19 12:30 RT Aerosol Therapy [RC] ASDIRECTED - Assessment/Plan Last 24 Hours: My Active Orders 12/21/19 12:30 RT Aerosol Therapy [RC] ASDIRECTED
[2019-12-21] MEDS ORDERED: Albuterol/Ipratropium 3.0-0.5 MG/3 ML Neb Soln NEB ONE (12:30)
--- NOTE | 2019-12-21 13:53 | CR ---
Chest: Portable view of the chest was obtained. Comparison: No prior chest x-ray. Heart is enlarged. Tortuous thoracic aorta is seen. AICD is noted. Prior sternotomy is seen. Small nodule is seen off the left cardiac apex which appears fairly dense and most likely represents a granuloma. Pulmonary vessels are minimally congested which are most likely chronic. Lungs otherwise are clear. Impression: 1. Cardiomegaly and pulmonary vascular congestion. Pulmonary vascular congestion most likely is chronic unless patient has correlating laboratory and clinical symptoms to suggest mild acute vascular congestion. 2. Other findings as noted above. Diagnostic code #3 This report was dictated in [place] Standard Time
[2019-12-21 15:25] VITALS: PULSE 55
== END 2019-12-21 14:26 | disposition home or self-care (01) ==
LOC: JD.ED 11:39
DX: R04.0 Epistaxis (principal); I13.0 Hypertensive heart and chronic kidney disease with heart failure and stage 1 through stage 4 chronic kidney disease, or unspecified chronic kidney disease; I50.9 Heart failure, unspecified; N18.9 Chronic kidney disease, unspecified; E78.00 Pure hypercholesterolemia, unspecified; I25.2 Old myocardial infarction; M10.9 Gout, unspecified; Z88.1 Allergy status to other antibiotic agents; I25.10 Atherosclerotic heart disease of native coronary artery without angina pectoris; Z79.82 Long term (current) use of aspirin; Z79.899 Other long term (current) drug therapy; Z79.02 Long term (current) use of antithrombotics/antiplatelets
CPT/HCPCS: 30901; 36415; 71045; 80053; 83735; 83880; 84484; 85025; 86140; 94640; 99284; A9270; 99283; J7620-GY

== ENCOUNTER 2020-02-03 10:45 | Emergency (ER) | payer MEDICARE, BC ==
--- NOTE | 2020-02-03 11:10 | EDM.PDOC ---
ED HPI GENERAL MEDICAL PROBLEM - General Chief Complaint: Back Pain or Injury Stated Complaint: [facility] Time Seen by Provider: 02/03/20 11:02 Source of Information: Reports: Patient, EMS, EMS Notes Reviewed History Limitations: Reports: No Limitations - History of Present Illness Onset: Gradual Duration: Getting Worse Location: Reports: Back Quality: Reports: Ache Severity: Severe Improves with: Reports: None Worsens with: Reports: Movement Context: Denies: Lifting, Trauma Associated Symptoms: Reports: Loss of Appetite. Denies: Chest Pain, Cough, Diaphoresis, Fever/Chills, Headaches, Rash, Shortness of Breath, Weakness Treatments ETL TESTER: Reports: Acetaminophen, See EMS Report (Patient brought in by ambulance for evaluation of low back pain. Patient has had back problems over the last several months but is gotten to the point where he is having difficulty getting around the house. He cannot sleep very well and last night did not sleep at all. Is been trying Tylenol without a lot of relief. No specific fall trauma or injury. Patient does self catheterize after having a prostate surgery for BPH but otherwise has not had any fall trauma or injury. No loss of bowel control. Not noted any fevers, no bloody urine or discolored urine, no numbness or tingling. Pain seems to be fairly constant however it is somewhat worse with movement especially trying to flex at the hip or put weight on it. No numbness or tingling. No abdominal pain, no nausea or vomiting. Bowels are fairly normal and regular. No bloody stool. Pain is sharp fairly constant not seem to radiate down his buttocks or leg. Loss of sensation or motor strength weakness.) Left Back Pain Score (Numeric/FACES): 0 - Related Data Allergies Allergy/AdvReac Type Severity Reaction Status Date / Time bacitracin [From Polysporin] Allergy Swelling Verified 02/03/20 10:54 bacitracin zinc Allergy Swelling Verified 02/03/20 10:54 [From Neosporin ([id number])] neomycin sulfate Allergy Swelling Verified 02/03/20 10:54 [From Neosporin ([id number])] polymyxin B Allergy Swelling Verified 02/03/20 10:54 [From Neosporin ([id number])] polymyxin B sulfate Allergy Swelling Verified 02/03/20 10:54 [From Polysporin] pramoxine Allergy Edema Verified 02/03/20 10:54 Home Meds: Home Meds Aspirin [Adult Aspirin] 1 tab PO DAILY 10/15/18 [History] Ergocalciferol (Vitamin D2) [Vitamin D2] 1,000 units PO DAILY 10/15/18 [History] Finasteride 1 tab PO BEDTIME 10/15/18 [History] Folic Acid 800 mcg PO DAILY 10/15/18 [History] Furosemide 1 tab PO DAILY 10/15/18 [History] Losartan [Cozaar] 1 tab PO DAILY 10/15/18 [History] Metoprolol Tartrate 1 tab PO BID 10/15/18 [History] Pantoprazole [ProTONIX] 1 tab PO DAILY 10/15/18 [History] Rosuvastatin Calcium 1 tab PO BEDTIME 10/15/18 [History] Spironolactone [Aldactone] 12.5 mg PO DAILY 10/15/18 [History] allopurinoL [Zyloprim] 1 tab PO BEDTIME 10/15/18 [History] Clopidogrel [Plavix] 75 mg PO DAILY 02/20/19 [History] Nitroglycerin [Nitrostat] 0.4 mg SL ASDIRECTED PRN 02/20/19 [History] Acetaminophen/HYDROcodone [Citronelle 325-5 MG] 1 - 2 tab PO Q4H PRN #10 tablet 02/02 [Rx] Cephalexin [Keflex] 500 mg PO Q8HR #30 capsule 02/03/20 [Rx] Orphenadrine [Norflex] 100 mg PO BID PRN #20 tab 02/03/20 [Rx] Tamsulosin [Flomax] 0.4 mg PO QPM 02/03/20 [History] methylPREDNISolone [Medrol Dose Pack] 4 mg PO DAILY #1 dospk 02/03/20 [Rx] Past Medical History HEENT History: Reports: Cataract, Impaired Vision Other HEENT History: wears glasses. Cardiovascular History: Reports: Angina, Bypass, CAD, Cardiomyopathy, High Cholesterol, Hypertension, AL, Stents Other Cardiovascular History: Chest Pain with exercise - EF 30% [see echo] Respiratory History: Reports: SOB Gastrointestinal History: Reports: Diverticulosis, GI Bleed, PUD Genitourinary History: Reports: BPH, Chronic Renal Insuffiency, Renal Calculus Other Genitourinary History: Currently treating new renal problems [CRI?] self catherize BID Musculoskeletal History: Reports: Gout Other Musculoskeletal History: fx rib (frontal) Neurological History: Reports: None Psychiatric History: Reports: None Endocrine/Metabolic History: Reports: None Hematologic History: Reports: Blood Transfusion(s) Immunologic History: Reports: None Oncologic (Cancer) History: Reports: None Dermatologic History: Reports: None - Infectious Disease History Infectious Disease History: Reports: Chicken Pox, Measles - Past Surgical History HEENT Surgical History: Reports: Cataract Surgery Cardiovascular Surgical History: Reports: AICD, Coronary Artery Bypass GI Surgical History: Reports: Appendectomy, Colonoscopy, EGD Musculoskeletal Surgical History: Reports: None Dermatological Surgical History: Reports: None Social & Family History - Family History Family Medical History: Noncontributory HEENT: Reports: Cataract Cardiac: Reports: Bypass, Heart Failure, Heart Valve Replacement, High Cholesterol, Hypertension Other Cardiac Family History: mom and brother, sisters "whole family had heart issues" OBGYN: Reports: Neurological: Reports: CVA Other Neurological Family History: mother Oncologic: Reports: Breast, Lung Other Oncologic Family History: sisters, father lung - Tobacco Use Smoking Status *Q: Never Smoker Second Hand Smoke Exposure: No - Caffeine Use Caffeine Use: Reports: Coffee Other Caffeine Use: decaf 1 cup in the am. - Recreational Drug Use Recreational Drug Use: No - Living Situation & Occupation Living situation: Reports: , with Spouse Occupation: Retired ED ROS GENERAL - Review of Systems Review Of Systems: See Below Constitutional: Denies: Fever, Chills, Weakness, Night Sweats Respiratory: Denies: Shortness of Breath, Cough Cardiovascular: Denies: Chest Pain GI/Abdominal: Denies: Abdominal Pain, Bloody Stool, Diarrhea, Decreased Appetite , Distension, Nausea, Stool Incontinence : Reports: Urinary Retention. Denies: Discharge, Flank Pain Musculoskeletal: Reports: Back Pain, Muscle Pain, Muscle Stiffness. Denies: Leg Pain, Foot Pain, Joint Swelling Skin: Denies: Rash Neurological: Reports: Difficulty Walking, Gait Disturbance. Denies: Dizziness , Headache, Numbness, Paresthesia Psychiatric: Reports: No Symptoms Hematologic/Lymphatic: Reports: No Symptoms Immunologic: Reports: No Symptoms ED EXAM,LOWER BACK PAIN/INJURY - Physical Exam Exam: See Below Exam Limited By: No Limitations General Appearance: Alert, WD/WN, Moderate Distress Throat/Mouth: Normal Inspection, Normal Oropharynx Head: Atraumatic Neck: Normal Inspection, Supple, Non-Tender Respiratory/Chest: No Respiratory Distress, Lungs Clear, No Accessory Muscle Use Cardiovascular: Normal Peripheral Pulses, Regular Rate, Rhythm GI/Abdominal: Normal Bowel Sounds, Soft, Non-Tender, No Distention, No Abnormal Bruit, No Mass. No: Guarding, Rigid, Rebound, Tender Back Exam: Decreased Range of Motion, Muscle Spasm, Paraspinal Tenderness Extremities: Normal Inspection, No Pedal Edema, Normal Capillary Refill, Limited Range of Motion. No: Sabina's Sign, Leg Pain, Pallor, Redness Neurological: Alert, Normal Mood/Affect, Normal Dorsiflexion, Normal Reflexes, No Motor/Sensory Deficits, Oriented x 3 DTR - Lower Extremities: 1+: Knee (R), Knee (L) Psychiatric: Normal Affect Skin Exam: Warm, Dry (Straight leg raising positive to 5 degrees on the left negative on the right, motor strength 5 out of 5 lower extremity equal bilaterally no sensation deficit. Pain is mostly located in the lumbar spine left paraspinal area. No sacroiliac pain, no hip pain. No flank pain, no signs of any thoracic pain. Strength is 5 out of 5 sensation is normal.) Course - Vital Signs Last Recorded V/S: Last Vital Signs Temp 97.5 F 02/03/20 10:51 Pulse 69 02/03/20 10:51 Resp 19 02/03/20 10:51 BP 118/72 02/03/20 10:51 Pulse Ox 100 02/03/20 10:51 - Orders/Labs/Meds Orders: Active Orders 24 hr Category Date Time Status CULTURE URINE [RM] Stat Lab 02/03/20 14:49 Ordered HYDROmorphone [Dilaudid] Med 02/03/20 11:12 Ordered 0.5 mg IVPUSH Q1H PRN diazePAM [Valium] Med 02/03/20 11:11 Ordered 2 mg IVPUSH Q2H PRN Medication Orders Diazepam (Valium) 2 mg IVPUSH Q2H PRN PRN Reason: Spasms Last Admin: 02/03/20 12:14 Dose: 2 mg Hydromorphone HCl (Dilaudid) 0.5 mg IVPUSH Q1H PRN PRN Reason: Pain (severe 7-10) Last Admin: 02/03/20 11:29 Dose: 0.5 mg Labs: Laboratory Tests 02/03/20 02/03/20 02/03/20 Range/Units 11:23 11:23 13:45 WBC 8.92 (4.23-9.07) K/mm3 RBC 3.71 L (4.63-6.08) M/mm3 Hgb 12.1 L (13.7-17.5) gm/dl Hct 37.4 L (40.1-51.0) % MCV 100.8 H D (79.0-92.2) fl MCH 32.6 H (25.7-32.2) pg MCHC 32.4 (32.2-35.5) g/dl RDW Std Deviation 51.2 H (35.1-43.9) fL Plt Count 148 L (163-337) K/mm3 MPV 11.4 (9.4-12.3) fl Neut % (Auto) 72.8 H (34.0-67.9) % Lymph % (Auto) 15.5 L (21.8-53.1) % [place] % (Auto) 10.8 (5.3-12.2) % Eos % (Auto) 0.7 L (0.8-7.0) Baso % (Auto) 0.1 (0.1-1.2) % Neut # (Auto) 6.50 H (1.78-5.38) K/mm3 Lymph # (Auto) 1.38 (1.32-3.57) K/mm3 [place] # (Auto) 0.96 H (0.30-0.82) K/mm3 Eos # (Auto) 0.06 (0.04-0.54) K/mm3 Baso # (Auto) 0.01 (0.01-0.08) K/mm3 Sodium 140 (136-145) mEq/L Potassium 4.4 (3.5-5.1) mEq/L Chloride 104 (98-107) mEq/L Carbon Dioxide 23 (21-32) mEq/L Anion Gap 17.4 H (5-15) BUN 91 H (7-18) mg/dL Creatinine 2.9 H (0.7-1.3) mg/dL Est Cr Clr Drug Dosing 20.81 mL/min Estimated GFR (MDRD) 21 (>60) mL/min BUN/Creatinine Ratio 31.4 H (14-18) Glucose 129 H (83-115) mg/dL Calcium 9.5 (8.5-10.1) mg/dL C-Reactive Protein 1.1 H* (<1.0) mg/dL Urine Color Light yellow (Yellow) Urine Appearance Clear (Clear) Urine pH 6.0 (5.0-8.0) Ur Specific [place] 1.020 (1.005-1.030) Urine Protein Negative (Negative) Urine Glucose (UA) Negative (Negative) Urine Ketones Negative (Negative) Urine Occult Blood Negative (Negative) Urine Nitrite Negative (Negative) Urine Bilirubin Negative (Negative) Urine Urobilinogen 0.2 (0.2-1.0) Ur Leukocyte Esterase Negative (Negative) Urine RBC Not seen (0-5) /hpf Urine WBC 0-5 (0-5) /hpf Ur Squamous Epith Cells 0-5 (0-5) /hpf Urine Bacteria Not seen (FEW) /hpf Urine Mucus Not seen (FEW) /hpf Meds: Medications Generic Name Dose Route Start Last Admin Trade Name Freq PRN Reason Stop Dose Admin Diazepam 2 mg 02/03/20 11:11 02/03/20 12:14 Valium IVPUSH 2 mg Q2H PRN Administration Spasms Hydromorphone HCl 0.5 mg 02/03/20 11:12 02/03/20 11:29 Dilaudid IVPUSH 0.5 mg Q1H PRN Administration Pain (severe 7-10) - Radiology Interpretation CT Results Date: 02/03/20 (Diffuse degenerative changes are noted especially in the area of mild to moderate canal stenosis at L4-5 with moderate canal stenosis at 2 3 and L3-4 also there is a left-sided neuroforaminal stenosis at L4-5 and 5 S1.) - Re-Assessments/Exams Free Text/Narrative Re-Assessment/Exam: 02/03/20 12:48 Patient on aspirin and Plavix. Did not give him any Toradol and there is no other muscle spasm medications here except for Valium. He was given a half a milligram of hydromorphone and 2 mg of Valium and is in sleeping, on oxygen monitoring closely however released not uncomfortable. CT scan shows a lot of degenerative changes and neuroforaminal changes especially at L4-5 and L5-S1 which seems to correlate with his symptoms. Doubt cauda equina or epidural abscess. Seems very unlikely AAA or bowel obstruction. We will see if we can work on managing his pain with medications, he will need follow-up with Ortho/ spine and/or pain management. No signs of any acute compression fracture noted. Free Text/Narrative Re-Assessment/Exam: 02/03/20 14:06 Patient is now awake and alert. His BUN is elevated with creatinine of 2.9, his hemoglobin is 12, white count is normal CRP is 1.1, reviewed the CT scan films with the patient. Send off a urine. His urine otherwise looks clear, concerning whether he might have worsening renal function, will see if he can get old records, otherwise patient would like to try to go home. We will see if we can send him home with a few pills of Citronelle, Medrol Dosepak, Norflex, follow-up with his primary care, may need orthopedic/neurosurgery and/or chronic pain management referral. Creatinine actually was 3.1 and runs around 2 -1/2-3 over the last several months. 3 drinks more fluids. 02/03/20 14:07 Free Text/Narrative Re-Assessment/Exam: 02/03/20 14:50 Urine positive for microscopic blood, white cells, leukocyte Estrace and nitrites. Sent a culture. Will cover patient with Keflex 500 mg 3 times a day may be part of his back pain. Need to follow-up with his primary care physician return precautions given. Departure - Departure Time of Disposition: 14:51 Disposition: Home, Self-Care 01 Condition: Fair Clinical Impression: Spinal stenosis at L4-L5 level, Chronic renal failure, Urinary tract infection - Discharge Information Prescriptions: Cephalexin [Keflex] 500 mg PO Q8HR #30 capsule Acetaminophen/HYDROcodone [Citronelle 325-5 MG] 1 - 2 tab PO Q4H PRN #10 tablet PRN Reason: Pain methylPREDNISolone [Medrol Dose Pack] 4 mg PO DAILY #1 dospk Orphenadrine [Norflex] 100 mg PO BID PRN #20 tab PRN Reason: Spasms Instructions: Acute Back Pain, Adult, Urinary Tract Infection, Adult, Back Exercises, [id number], Chronic Kidney Disease, Adult, [id number], Pain Medicine Instructions, [id number] Referrals: PCP,None [Primary Care Provider] - 3 Days Forms: ED Department Discharge Additional Instructions: Try to walk as much as possible, ice, may try heat no longer than 15 or 20 minutes at a time. Take medications as directed, follow-up with your primary care physician later this week. Return however for any increasing pain, weakness, numbness to the hip thigh knee leg or ankle., Fevers, loss of bowel control, worsening. Drink more water, take antibiotics as directed, recheck with your primary care later this week Sepsis Event Note - Evaluation Sepsis Screening Result: No Definite Risk - Focused Exam Vital Signs: Vital Signs Temp Pulse Resp BP Pulse Ox 02/03/20 10:51 97.5 F 69 19 118/72 100 Date Exam was Performed: 02/03/20 Time Exam was Performed: 14:55 - My Orders Last 24 Hours: My Active Orders 02/03/20 11:11 diazePAM [Valium] 2 mg IVPUSH Q2H PRN 02/03/20 11:12 HYDROmorphone [Dilaudid] 0.5 mg IVPUSH Q1H PRN 02/03/20 14:49 CULTURE URINE [RM] Stat - Assessment/Plan Last 24 Hours: My Active Orders 02/03/20 11:11 diazePAM [Valium] 2 mg IVPUSH Q2H PRN 02/03/20 11:12 HYDROmorphone [Dilaudid] 0.5 mg IVPUSH Q1H PRN 02/03/20 14:49 CULTURE URINE [RM] Stat
[2020-02-03] MEDS ORDERED: HYDROmorphone 0.5 MG/0.5 ML Syringe IVPUSH PRN (11:12)
--- NOTE | 2020-02-03 12:08 | CT ---
CT lumbar spine Technique: Multiple axial sections were obtained from above the T11-T12 disc inferiorly through the L5-S1 disc. Reconstructed coronal and sagittal images were obtained. Findings: T11-T12: Schmorl's node deformity is seen within the superior endplate of T12. Mild posterior disc space narrowing is seen. Posterior disc is preserved. Mild degenerative apophyseal change is noted. No central canal stenosis or neural foraminal stenosis is seen. T12-L1: Posterior disc space narrowing is seen. Posterior disc maintains a concave margin. Mild degenerative apophyseal change is seen. No central canal stenosis or neural foraminal stenosis is seen. L1-L2: Slight anterior wedging of L1 which is believed to be old. Mild posterior disc space narrowing is seen. Slight circumferential disc bulge is present. Posterior disc maintains a minimally concave margin. No central canal stenosis is seen. Neural foramina are patent where the nerve roots exit. Mild degenerative apophyseal change is seen. L2-3: Mild posterior disc space narrowing is noted. Circumferential disc bulge is seen. Moderate degenerative apophyseal change is seen. Spurring is noted into the neural foramina from the right apophyseal joint. Thickening of the ligamentum flavum is seen. Findings cause moderate central canal stenosis. Neural foramina are patent where the nerve roots exit. L3-L4 : Slight circumferential disc bulge is seen. Mild degenerative apophyseal change is noted with thickening of the ligamentum flavum. Findings cause mild central canal stenosis. Neural foramina are patent where the nerve roots exit. L4-L5: Mild posterior disc space narrowing is seen. Mild degenerative apophyseal change is noted with diffuse thickening of the ligamentum flavum. Circumferential disc bulge is also present. Findings cause [id number] central canal stenosis. Left-sided neural foraminal stenosis is seen with compromise upon the left L4 nerve root. Right neural foramina appears patent where the nerve root exits. L5-S1: Disc space narrowing with vacuum disc phenomena is seen. Slight circumferential disc bulge is noted. No central canal stenosis is seen. Posterolateral spurring and disc bulging is seen into the left neural foramina causing slight compromise upon the exiting L5 nerve root within and outside the neural foramina. No acute fracture is appreciated. No abnormal subluxation is seen. Impression: 1. Diffuse degenerative change as noted above. 2. Most prominent findings are mild to moderate central canal stenosis at L4-L5 with moderate central canal stenosis at L2-3 and mild central canal stenosis at L3-L4. 3. Other prominent finding is left-sided neural foraminal stenosis at L4-L5 and L5-S1. 4. Nothing acute is seen. Diagnostic code #3 Study was dictated in MDT
[2020-02-03 15:36] VITALS: BP 100/61; PULSE 60
== END 2020-02-03 15:20 | disposition home or self-care (01) ==
LOC: JD.ED 10:45
DX: M48.061 Spinal stenosis, lumbar region without neurogenic claudication (principal); N39.0 Urinary tract infection, site not specified; I25.10 Atherosclerotic heart disease of native coronary artery without angina pectoris; E78.00 Pure hypercholesterolemia, unspecified; I12.9 Hypertensive chronic kidney disease with stage 1 through stage 4 chronic kidney disease, or unspecified chronic kidney disease; N18.9 Chronic kidney disease, unspecified; M10.9 Gout, unspecified; Z79.02 Long term (current) use of antithrombotics/antiplatelets; Z79.899 Other long term (current) drug therapy; Z88.1 Allergy status to other antibiotic agents; Z79.82 Long term (current) use of aspirin
CPT/HCPCS: 36415; 72131; 80048; 81001; 85025; 86140; 87086; 96374; 96375; 99284; J1170; J3360; 87088; 87186

== ENCOUNTER 2020-11-17 09:30 | Emergency (ER) | payer MEDICARE, BC ==
[2020-11-17 09:47] VITALS: BP 113/84
[2020-11-17] MEDS ORDERED: Sodium Chloride 0.9% 10 ML Syringe FLUSH PRN (09:50)
--- NOTE | 2020-11-17 09:56 | EDM.PDOC ---
<Junito Craig - Last Filed: 11/17/20 14:13> ED HPI GENERAL MEDICAL PROBLEM - General Chief Complaint: Chest Pain Stated Complaint: SOB AND CHEST PAIN Time Seen by Provider: 11/17/20 09:41 Source of Information: Reports: Patient History Limitations: Reports: No Limitations, Other (Vitals in the ED reveal a temp of 96.5, pulse 111, respiratory rate 28, blood pressure 113/84, pulse ox 98% on room air.) - History of Present Illness INITIAL COMMENTS - FREE TEXT/NARRATIVE: 85-year-old male presents to the ER with complaints of shortness of breath and chest pain. He states he has been progressively more short of breath over the course of the last couple of weeks. He has had orthopnea worsening. States he saw Dr. Sanders 2 weeks ago for this similar complaint. He states that Dr. Pierson recently placed him on antibiotics for an elevated white blood cell count but it is unknown what the source of infection was. Patient reports that approximately 2 weeks ago his guest services assistant discontinued his spironolactone and his losartan due to hypotension. His Lasix dose was also decreased from 120 mg daily to 80 mg daily. Patient is visibly dyspneic and tachypneic. With audible expiratory wheezes noted. He also has 1+ pitting edema to his bilateral lower extremities which his states is new for him. Patient does self cath himself 3 times daily. Onset: Gradual Chest Pain Score (Numeric/FACES): 4 - Related Data Allergies Allergy/AdvReac Type Severity Reaction Status Date / Time bacitracin [From Polysporin] Allergy Swelling Verified 11/17/20 09:48 bacitracin zinc Allergy Swelling Verified 11/17/20 09:48 [From Neosporin ([id number])] neomycin sulfate Allergy Swelling Verified 11/17/20 09:48 [From Neosporin ([id number])] polymyxin B Allergy Swelling Verified 11/17/20 09:48 [From Neosporin ([id number])] polymyxin B sulfate Allergy Swelling Verified 11/17/20 09:48 [From Polysporin] pramoxine Allergy Edema Verified 11/17/20 09:48 Home Meds: Home Meds Allopurinol [Zyloprim] 100 mg PO BEDTIME 11/17/20 [History] Cefdinir 300 mg PO DAILY 11/17/20 [History] Cholecalciferol (Vitamin D3) [Vitamin D3] 1 cap PO DAILY 11/17/20 [History] Clopidogrel [Plavix] 75 mg PO DAILY 11/17/20 [History] Finasteride 5 mg PO BEDTIME 11/17/20 [History] Folic Acid 0.8 mg PO DAILY 11/17/20 [History] Furosemide 80 mg PO DAILY 11/17/20 [History] Isosorbide Mononitrate [Imdur] 60 mg PO BEDTIME 11/17/20 [History] Metoprolol Tartrate 50 mg PO BID 11/17/20 [History] Pantoprazole [ProTONIX] 40 mg PO DAILY 11/17/20 [History] Rosuvastatin Calcium 20 mg PO BEDTIME 11/17/20 [History] Past Medical History HEENT History: Reports: Cataract, Impaired Vision Other HEENT History: wears glasses. Cardiovascular History: Reports: Angina, Bypass, CAD, Cardiomyopathy, High Cholesterol, Hypertension, [place], Stents Other Cardiovascular History: Chest Pain with exercise - EF 30% [see echo] Respiratory History: Reports: SOB Gastrointestinal History: Reports: Diverticulosis, GI Bleed, PUD Genitourinary History: Reports: BPH, Chronic Renal Insuffiency, Renal Calculus Other Genitourinary History: Currently treating new renal problems [CRI?] self catherize BID Musculoskeletal History: Reports: Gout Other Musculoskeletal History: fx rib (frontal) Neurological History: Reports: None Psychiatric History: Reports: None Endocrine/Metabolic History: Reports: None Hematologic History: Reports: Blood Transfusion(s) Immunologic History: Reports: None Oncologic (Cancer) History: Reports: None Dermatologic History: Reports: None - Infectious Disease History Infectious Disease History: Reports: Chicken Pox, Measles - Past Surgical History HEENT Surgical History: Reports: Cataract Surgery Cardiovascular Surgical History: Reports: AICD, Coronary Artery Bypass GI Surgical History: Reports: Appendectomy, Colonoscopy, EGD Musculoskeletal Surgical History: Reports: None Dermatological Surgical History: Reports: None Social & Family History - Family History Family Medical History: No Pertinent Family History HEENT: Reports: Cataract Cardiac: Reports: Bypass, Heart Failure, Heart Valve Replacement, High Cholesterol, Hypertension Other Cardiac Family History: mom and brother, sisters "whole family had heart issues" OBGYN: Reports: Neurological: Reports: CVA Other Neurological Family History: mother Oncologic: Reports: Breast, Lung Other Oncologic Family History: sisters, father lung - Caffeine Use Caffeine Use: Reports: Coffee Other Caffeine Use: decaf 1 cup in the am. - Living Situation & Occupation Living situation: Reports: , with Spouse Occupation: Retired ED ROS GENERAL - Review of Systems Review Of Systems: See Below Constitutional: Denies: Fever, Chills, Diaphoresis HEENT: Reports: No Symptoms Respiratory: Reports: Shortness of Breath, Wheezing. Denies: Pleuritic Chest Pain Cardiovascular: Reports: Chest Pain, Dyspnea on Exertion (For the past couple of weeks), Edema (1+ pitting to bilateral lower extremities), Orthopnea (This has been going on for a couple of weeks.) Endocrine: Reports: No Symptoms GI/Abdominal: Reports: No Symptoms. Denies: Abdominal Pain, Nausea, Vomiting : Reports: Urinary Retention, Other (Patient self caths 3 times daily) Musculoskeletal: Reports: No Symptoms Skin: Reports: No Symptoms Neurological: Reports: No Symptoms Psychiatric: Reports: No Symptoms Hematologic/Lymphatic: Reports: No Symptoms Immunologic: Reports: No Symptoms ED EXAM, GENERAL - Physical Exam Exam: See Below Exam Limited By: No Limitations General Appearance: Alert, WD/WN, Moderate Distress Eye Exam: Bilateral Eye: PERRL Ears: Normal External Exam, Hearing Grossly Normal Nose: Normal Inspection, Normal Mucosa, No Blood Throat/Mouth: Normal Inspection, Normal Lips, Normal Voice, No Airway Compromise Head: Atraumatic, Normocephalic Neck: Normal Inspection, Supple, Non-Tender, Full Range of Motion Respiratory/Chest: Lungs Clear, Chest Non-Tender, Respiratory Distress, Wheezing (Audible expiratory wheezes anteriorly, lungs clear posteriorly). No: No Respiratory Distress Cardiovascular: Normal Peripheral Pulses, Regular Rate, Rhythm, No Murmur. No: No Edema (1+ pitting edema noted to bilateral lower extremities) Peripheral Pulses: 2+: Radial (L), Radial (R) GI/Abdominal: Normal Bowel Sounds, Non-Tender, Distended, Other (ascites) (Male) Exam: Deferred Rectal (Males) Exam: Deferred Back Exam: Normal Inspection, Full Range of Motion Extremities: Normal Inspection, Normal Range of Motion, Non-Tender, Normal Capillary Refill, Pedal Edema (1+ pitting to bilateral lower extremitiespatient's states that this is new she states that she was going to phone his electrical equipment technician this morning as patient is considering dialysis.) Neurological: Alert, Oriented, Normal Cognition Psychiatric: Normal Affect, Normal Mood Skin Exam: Warm, Dry, Intact, Normal Color, No Rash Lymphatic: No Adenopathy #1 Interpretation EKG Date: 11/17/20 Time: 09:39 Rhythm: NSR Rate (Beats/Min): 111 Crowder: Normal P-Wave: Present QRS: LBBB ST-T: Normal EKG Interpretation Comments: Per Dr. Pederson interpretation: Sinus or ectopic atrial tachycardia, left bundle branch block, abnormal EKG. Course - Vital Signs Text/Narrative:: I have ordered a chest x-ray, EKG, CBC, CMP, magnesium, CRP, proBNP, lactic acid, PT/INR, PTT, blood cultures x2. Of note, patient does ring and is a high sepsis risk. - Radiology Interpretation Free Text/Narrative:: Portable chest x-ray per radiologist impression: findings suspicious for mild CHF. - Re-Assessments/Exams Free Text/Narrative Re-Assessment/Exam: 11/17/20 10:57 Labs reveal WBC 8.35, RBC 3.31, hemoglobin 10.7, hematocrit 34.9, MCV 105.4, platelet count 150, sodium 142, potassium 4.2, anion gap 20.2, BUN 76, creatinine 3.5, GFR 17, glucose 202, magnesium 2.4, troponin 0 0.147, C-reactive protein 2.0, proBNP 24,944, urinalysis reveals urine protein 3+, urine occult blood 2+ urine nitrite is negative, urine leuk esterase negative urine RBCs 10- 20,000, Patient has received 40 mg IV Lasix x1 dose. I have phoned the hospitalist, Dr. Gómez, in regards to accepting care of this patient. He will be giving me a call back. 11/17/20 11:[address] Gómez and he feels that the patient would be better taken care of in [place] due to the fact that the patient is in significant heart failure and renal failure and that the patient needs nephrology to manage this patient. I have placed a call to [facility]. 11/17/20 11:31 Pt's lactic acid is 2.4. I spoke with [facility] one call and they requested that I get ABG's on the patient and a covid swab and then give them a call back. The guest services assistant will decide then if he/she want s the patient to receive IV fluids. 11/17/20 13:24 Attempted to call [facility] 1 call and they are unable to locate the guest services assistant on-call Dr. Kaur. They will be returning my phone call. 11/17/20 14:00 Dr. Looney has accepted to take the patient in transfer to [facility]. He will be transferred by ambulance. Departure - Departure Time of Disposition: 14:13 Disposition: DC/Tfer to [facility] 02 Condition: Fair Clinical Impression: CHF (congestive heart failure) Qualifiers: Heart failure type: unspecified Heart failure chronicity: acute on chronic Qualified Code(s): I50.9 - Heart failure, unspecified - Discharge Information Referrals: Damien Sanders MD [Primary Care Provider] - Forms: ED Department Discharge Sepsis Event Note (ED) - Evaluation Sepsis Screening Result: Possible Sepsis Risk <Bo Pederson - Last Filed: 11/18/20 19:10> Course - Vital Signs Last Recorded V/S: Last Vital Signs Temp 96.5 F L 11/17/20 09:39 Pulse 92 11/17/20 11:45 Resp 26 H 11/17/20 11:45 BP 113/84 11/17/20 09:39 Pulse Ox 97 11/17/20 11:45 - Orders/Labs/Meds Labs: Laboratory Tests 11/17/20 11/17/20 11/17/20 Range/Units 09:45 09:45 09:45 WBC 8.35 (4.23-9.07) K/mm3 RBC 3.31 L (4.63-6.08) M/mm3 Hgb 10.7 L (13.7-17.5) gm/dl Hct 34.9 L (40.1-51.0) % MCV 105.4 H D (79.0-92.2) fl MCH 32.3 H (25.7-32.2) pg MCHC 30.7 L (32.2-35.5) g/dl RDW Std Deviation 55.9 H (35.1-43.9) fL Plt Count 150 L (163-337) K/mm3 MPV 11.4 (9.4-12.3) fl Neut % (Auto) 67.7 (34.0-67.9) % Lymph % (Auto) 20.5 L (21.8-53.1) % [place] % (Auto) 9.9 (5.3-12.2) % Eos % (Auto) 1.4 (0.8-7.0) Baso % (Auto) 0.1 (0.1-1.2) % Neut # (Auto) 5.65 H (1.78-5.38) K/mm3 Lymph # (Auto) 1.71 (1.32-3.57) K/mm3 [place] # (Auto) 0.83 H (0.30-0.82) K/mm3 Eos # (Auto) 0.12 (0.04-0.54) K/mm3 Baso # (Auto) 0.01 (0.01-0.08) K/mm3 Manual Slide Review Abnormal smear PT (9.7-12.0) SECONDS INR APTT (21.7-31.4) SECONDS Puncture Site ABG pH (7.35-7.45) ABG pCO2 (35.0-45.0) mmHg ABG pO2 (80.0-100.0) mmHg ABG HCO3 (22.0-26.0) meq/L ABG O2 Saturation (96.0-97.0) % ABG Base Excess (-2-2.0) Solomon Test O2 Delivery Device Oxygen Flow Rate FiO2 (21.00-100.00) % Sodium 142 (136-145) mEq/L Potassium 4.2 (3.5-5.1) mEq/L Chloride 104 (98-107) mEq/L Carbon Dioxide 22 (21-32) mEq/L Anion Gap 20.2 H (5-15) BUN 76 H (7-18) mg/dL Creatinine 3.5 H (0.7-1.3) mg/dL Est Cr Clr Drug Dosing 16.94 mL/min Estimated GFR (MDRD) 17 (>60) mL/min BUN/Creatinine Ratio 21.7 H (14-18) Glucose 202 H (83-115) mg/dL Lactic Acid (0.4-2.0) mmol/L Calcium 9.4 (8.5-10.1) mg/dL Magnesium 2.4 (1.8-2.4) mg/dl Total Bilirubin 0.7 (0.2-1.0) mg/dL AST 16 (15-37) U/L ALT 16 (16-63) U/L Alkaline Phosphatase 83 (46-116) U/L Troponin I 0.147 H* (0.00-0.056) ng/mL C-Reactive Protein 2.0 H* (<1.0) mg/dL NT-Pro-B Natriuret Pep [id number] H (0-450) pg/mL Total Protein 8.0 (6.4-8.2) g/dl Albumin 3.4 (3.4-5.0) g/dl Globulin 4.6 gm/dL Albumin/Globulin Ratio 0.7 L (1-2) Urine Color (Yellow) Urine Appearance (Clear) Urine pH (5.0-8.0) Ur Specific [place] (1.005-1.030) Urine Protein (Negative) Urine Glucose (UA) (Negative) Urine Ketones (Negative) Urine Occult Blood (Negative) Urine Nitrite (Negative) Urine Bilirubin (Negative) Urine Urobilinogen (0.2-1.0) Ur Leukocyte Esterase (Negative) Urine RBC (0-5) /hpf Urine WBC (0-5) /hpf Ur Squamous Epith Cells (0-5) /hpf Amorphous Sediment (NOT SEEN) /hpf Urine Bacteria (FEW) /hpf Urine Mucus (FEW) /hpf SARS-CoV-2 RNA (BRIANNE) (NEGATIVE) 11/17/20 11/17/20 11/17/20 Range/Units 09:45 10:15 10:34 WBC (4.23-9.07) K/mm3 RBC (4.63-6.08) M/mm3 Hgb (13.7-17.5) gm/dl Hct (40.1-51.0) % MCV (79.0-92.2) fl MCH (25.7-32.2) pg MCHC (32.2-35.5) g/dl RDW Std Deviation (35.1-43.9) fL Plt Count (163-337) K/mm3 MPV (9.4-12.3) fl Neut % (Auto) (34.0-67.9) % Lymph % (Auto) (21.8-53.1) % [place] % (Auto) (5.3-12.2) % Eos % (Auto) (0.8-7.0) Baso % (Auto) (0.1-1.2) % Neut # (Auto) (1.78-5.38) K/mm3 Lymph # (Auto) (1.32-3.57) K/mm3 [place] # (Auto) (0.30-0.82) K/mm3 Eos # (Auto) (0.04-0.54) K/mm3 Baso # (Auto) (0.01-0.08) K/mm3 Manual Slide Review PT 11.8 (9.7-12.0) SECONDS INR 1.10 APTT 26.5 (21.7-31.4) SECONDS Puncture Site ABG pH (7.35-7.45) ABG pCO2 (35.0-45.0) mmHg ABG pO2 (80.0-100.0) mmHg ABG HCO3 (22.0-26.0) meq/L ABG O2 Saturation (96.0-97.0) % ABG Base Excess (-2-2.0) Solomon Test O2 Delivery Device Oxygen Flow Rate FiO2 (21.00-100.00) % Sodium (136-145) mEq/L Potassium (3.5-5.1) mEq/L Chloride (98-107) mEq/L Carbon Dioxide (21-32) mEq/L Anion Gap (5-15) BUN (7-18) mg/dL Creatinine (0.7-1.3) mg/dL Est Cr Clr Drug Dosing mL/min Estimated GFR (MDRD) (>60) mL/min BUN/Creatinine Ratio (14-18) Glucose (83-115) mg/dL Lactic Acid 2.4 H* (0.4-2.0) mmol/L Calcium (8.5-10.1) mg/dL Magnesium (1.8-2.4) mg/dl Total Bilirubin (0.2-1.0) mg/dL AST (15-37) U/L ALT (16-63) U/L Alkaline Phosphatase (46-116) U/L Troponin I (0.00-0.056) ng/mL C-Reactive Protein (<1.0) mg/dL NT-Pro-B Natriuret Pep (0-450) pg/mL Total Protein (6.4-8.2) g/dl Albumin (3.4-5.0) g/dl Globulin gm/dL Albumin/Globulin Ratio (1-2) Urine Color Yellow (Yellow) Urine Appearance Clear (Clear) Urine pH 5.5 (5.0-8.0) Ur Specific [place] > or = 1.030 (1.005-1.030) Urine Protein 3+ H (Negative) Urine Glucose (UA) Negative (Negative) Urine Ketones Negative (Negative) Urine Occult Blood 2+ H (Negative) Urine Nitrite Negative (Negative) Urine Bilirubin Negative (Negative) Urine Urobilinogen 0.2 (0.2-1.0) Ur Leukocyte Esterase Negative (Negative) Urine RBC 10-20 H (0-5) /hpf Urine WBC 0-5 (0-5) /hpf Ur Squamous Epith Cells 0-5 (0-5) /hpf Amorphous Sediment Many H (NOT SEEN) /hpf Urine Bacteria Few (FEW) /hpf Urine Mucus Not seen (FEW) /hpf SARS-CoV-2 RNA (BRIANNE) (NEGATIVE) 11/17/20 11/17/20 11/17/20 Range/Units 11:35 12:53 13:22 WBC (4.23-9.07) K/mm3 RBC (4.63-6.08) M/mm3 Hgb (13.7-17.5) gm/dl Hct (40.1-51.0) % MCV (79.0-92.2) fl MCH (25.7-32.2) pg MCHC (32.2-35.5) g/dl RDW Std Deviation (35.1-43.9) fL Plt Count (163-337) K/mm3 MPV (9.4-12.3) fl Neut % (Auto) (34.0-67.9) % Lymph % (Auto) (21.8-53.1) % [place] % (Auto) (5.3-12.2) % Eos % (Auto) (0.8-7.0) Baso % (Auto) (0.1-1.2) % Neut # (Auto) (1.78-5.38) K/mm3 Lymph # (Auto) (1.32-3.57) K/mm3 [place] # (Auto) (0.30-0.82) K/mm3 Eos # (Auto) (0.04-0.54) K/mm3 Baso # (Auto) (0.01-0.08) K/mm3 Manual Slide Review PT (9.7-12.0) SECONDS INR APTT (21.7-31.4) SECONDS Puncture Site Rt radial ABG pH 7.40 (7.35-7.45) ABG pCO2 33.6 L (35.0-45.0) mmHg ABG pO2 77.0 L (80.0-100.0) mmHg ABG HCO3 20.5 L (22.0-26.0) meq/L ABG O2 Saturation 95.0 L (96.0-97.0) % ABG Base Excess -3.2 L (-2-2.0) Solomon Test Positive O2 Delivery Device Room air Oxygen Flow Rate 0.0 FiO2 0.00 L (21.00-100.00) % Sodium (136-145) mEq/L Potassium (3.5-5.1) mEq/L Chloride (98-107) mEq/L Carbon Dioxide (21-32) mEq/L Anion Gap (5-15) BUN (7-18) mg/dL Creatinine (0.7-1.3) mg/dL Est Cr Clr Drug Dosing mL/min Estimated GFR (MDRD) (>60) mL/min BUN/Creatinine Ratio (14-18) Glucose (83-115) mg/dL Lactic Acid 1.8 (0.4-2.0) mmol/L Calcium (8.5-10.1) mg/dL Magnesium (1.8-2.4) mg/dl Total Bilirubin (0.2-1.0) mg/dL AST (15-37) U/L ALT (16-63) U/L Alkaline Phosphatase (46-116) U/L Troponin I (0.00-0.056) ng/mL C-Reactive Protein (<1.0) mg/dL NT-Pro-B Natriuret Pep (0-450) pg/mL Total Protein (6.4-8.2) g/dl Albumin (3.4-5.0) g/dl Globulin gm/dL Albumin/Globulin Ratio (1-2) Urine Color (Yellow) Urine Appearance (Clear) Urine pH (5.0-8.0) Ur Specific [place] (1.005-1.030) Urine Protein (Negative) Urine Glucose (UA) (Negative) Urine Ketones (Negative) Urine Occult Blood (Negative) Urine Nitrite (Negative) Urine Bilirubin (Negative) Urine Urobilinogen (0.2-1.0) Ur Leukocyte Esterase (Negative) Urine RBC (0-5) /hpf Urine WBC (0-5) /hpf Ur Squamous Epith Cells (0-5) /hpf Amorphous Sediment (NOT SEEN) /hpf Urine Bacteria (FEW) /hpf Urine Mucus (FEW) /hpf SARS-CoV-2 RNA (BRIANNE) Negative (NEGATIVE) 11/17/20 Range/Units 13:42 WBC (4.23-9.07) K/mm3 RBC (4.63-6.08) M/mm3 Hgb (13.7-17.5) gm/dl Hct (40.1-51.0) % MCV (79.0-92.2) fl MCH (25.7-32.2) pg MCHC (32.2-35.5) g/dl RDW Std Deviation (35.1-43.9) fL Plt Count (163-337) K/mm3 MPV (9.4-12.3) fl Neut % (Auto) (34.0-67.9) % Lymph % (Auto) (21.8-53.1) % [place] % (Auto) (5.3-12.2) % Eos % (Auto) (0.8-7.0) Baso % (Auto) (0.1-1.2) % Neut # (Auto) (1.78-5.38) K/mm3 Lymph # (Auto) (1.32-3.57) K/mm3 [place] # (Auto) (0.30-0.82) K/mm3 Eos # (Auto) (0.04-0.54) K/mm3 Baso # (Auto) (0.01-0.08) K/mm3 Manual Slide Review PT (9.7-12.0) SECONDS INR APTT (21.7-31.4) SECONDS Puncture Site ABG pH (7.35-7.45) ABG pCO2 (35.0-45.0) mmHg ABG pO2 (80.0-100.0) mmHg ABG HCO3 (22.0-26.0) meq/L ABG O2 Saturation (96.0-97.0) % ABG Base Excess (-2-2.0) Solomon Test O2 Delivery Device Oxygen Flow Rate FiO2 (21.00-100.00) % Sodium (136-145) mEq/L Potassium (3.5-5.1) mEq/L Chloride (98-107) mEq/L Carbon Dioxide (21-32) mEq/L Anion Gap (5-15) BUN (7-18) mg/dL Creatinine (0.7-1.3) mg/dL Est Cr Clr Drug Dosing mL/min Estimated GFR (MDRD) (>60) mL/min BUN/Creatinine Ratio (14-18) Glucose (83-115) mg/dL Lactic Acid (0.4-2.0) mmol/L Calcium (8.5-10.1) mg/dL Magnesium (1.8-2.4) mg/dl Total Bilirubin (0.2-1.0) mg/dL AST (15-37) U/L ALT (16-63) U/L Alkaline Phosphatase (46-116) U/L Troponin I 0.288 H* (0.00-0.056) ng/mL C-Reactive Protein (<1.0) mg/dL NT-Pro-B Natriuret Pep (0-450) pg/mL Total Protein (6.4-8.2) g/dl Albumin (3.4-5.0) g/dl Globulin gm/dL Albumin/Globulin Ratio (1-2) Urine Color (Yellow) Urine Appearance (Clear) Urine pH (5.0-8.0) Ur Specific [place] (1.005-1.030) Urine Protein (Negative) Urine Glucose (UA) (Negative) Urine Ketones (Negative) Urine Occult Blood (Negative) Urine Nitrite (Negative) Urine Bilirubin (Negative) Urine Urobilinogen (0.2-1.0) Ur Leukocyte Esterase (Negative) Urine RBC (0-5) /hpf Urine WBC (0-5) /hpf Ur Squamous Epith Cells (0-5) /hpf Amorphous Sediment (NOT SEEN) /hpf Urine Bacteria (FEW) /hpf Urine Mucus (FEW) /hpf SARS-CoV-2 RNA (BRIANNE) (NEGATIVE) Meds: Medications Discontinued Medications Generic Name Dose Route Start Last Admin Trade Name Freq PRN Reason Stop Dose Admin Furosemide 40 mg 11/17/20 10:10 11/17/20 10:29 Lasix IVPUSH 11/17/20 10:11 40 mg NOW ONE Administration Sodium Chloride 10 ml 11/17/20 09:50 11/17/20 09:57 Saline Flush FLUSH 10 ml ASDIRECTED PRN Administration Keep Vein Open - Re-Assessments/Exams Free Text/Narrative Re-Assessment/Exam: 11/17/20 11:49 Hx and exam has been done by GILDA Fine. I agree with hx, exam, evaluation and treatment provided as documented.
[2020-11-17] MEDS ORDERED: Furosemide 40 MG/4 ML VIAL IVPUSH ONE (10:10)
--- NOTE | 2020-11-17 10:27 | CR ---
Chest: Portable view of the chest was obtained. Prior chest x-ray of 12/21/19. Heart is enlarged. AICD is present as well as sternotomy wires. There is mild increased density noted within the perihilar regions most likely representing mild pulmonary vascular congestion. No gross bony abnormality is appreciated. Impression: 1. Findings suspicious for mild CHF. Diagnostic code #3
[2020-11-17 11:46] VITALS: PULSE 92
== END 2020-11-17 14:51 ==
LOC: JD.ED 09:30
DX: I13.0 Hypertensive heart and chronic kidney disease with heart failure and stage 1 through stage 4 chronic kidney disease, or unspecified chronic kidney disease (principal); I50.9 Heart failure, unspecified; N18.9 Chronic kidney disease, unspecified; I25.10 Atherosclerotic heart disease of native coronary artery without angina pectoris; I25.2 Old myocardial infarction; E78.00 Pure hypercholesterolemia, unspecified; M10.9 Gout, unspecified; Z88.1 Allergy status to other antibiotic agents; Z88.8 Allergy status to other drugs, medicaments and biological substances; Z79.02 Long term (current) use of antithrombotics/antiplatelets; Z79.899 Other long term (current) drug therapy; Z20.822 Contact with and (suspected) exposure to COVID-19
CPT/HCPCS: 36415; 36600; 71045; 80053; 81001; 82803; 83605; 83735; 83880; 84484; 85025; 85610; 85730; 86140; 87040; 93005; 96374; 99285; J1940; U0002; 93010